=== PATIENT | female | born 1995 | race Caucasian/White ===

== ENCOUNTER 2018-04-22 18:45 | Emergency (ER) | payer OTHER ==
--- NOTE | 2018-04-22 18:55 | ER Report ---
History and Physical Time Seen By MD: 18:55 HPI/ROS CHIEF COMPLAINT: Headache HISTORY OF PRESENT ILLNESS: This is a 22-year-old female who presents to the emergency department for headache, nausea and vomiting. Patient states that about one week ago she developed some nausea and vomiting intermittent through the week and then today she developed a headache was seen in urgent care, they tried sumatriptan which did not help. Patient states that now she has increased pain behind her left eye, patient states this is the worst pain she has had. Patient does have a history of migraine headaches however she states this is completely different. Patient also has "pressure" behind her left eye. Patient is photophobic, not phonophobic. Intermittent aches and chills. No rashes no nuchal pain REVIEW OF SYSTEMS: Constitutional: As above. Eyes: As above. ENT: No sore throat. Cardiovascular: No chest pain, no palpitations. Respiratory: No cough, no shortness of breath. Gastrointestinal: As above. Genitourinary: No hematuria. Musculoskeletal: No back pain. Skin: No rashes. Neurological: As above. Allergies: Coded Allergies: Penicillins (Verified Allergy, Intermediate, HIVES, 04/22/18) amoxicillin (Verified Allergy, Intermediate, HIVES, 04/22/18) Home Meds Active Scripts Ondansetron (ZOFRAN ODT) 4 Mg Tab.rapdis, 4 MG PO Q6H Y for NAUSEA/VOMITING, # 20 TAB.AZRA 0 Refills Prov:MONET JOHANSEN [employer]ul [employer]- 04/22/18 Reported Medications Sumatriptan Succinate (SUMATRIPTAN SUCCINATE) 25 Mg Tablet, PO ONCE Y for MIGRAINE 04/22/18 Past Medical/Surgical History Patient has a past medical and surgical history of migraines, orthopedic injuries, tongue clipping. Reviewed Nurses Notes: Yes Constitutional Vital Sign - Last 24 Hours 04/22/18 04/22/18 04/22/18 04/22/18 18:55 19:00 19:15 19:30 Temp 98.4 Pulse 81 87 87 83 Resp 16 B/P (MAP) 130/92 109/89 (96) 126/77 (93) 113/72 (86) Pulse Ox 95 96 96 97 O2 Delivery Room Air Room Air Room Air Room Air 04/22/18 04/22/18 04/22/18 20:00 20:15 20:30 Pulse 90 85 85 B/P (MAP) 120/76 (91) 121/77 (92) 116/62 (80) Pulse Ox 96 96 95 O2 Delivery Room Air Room Air Room Air Intake and Output 04/22/18 04/22/18 04/23/18 15:00 23:00 07:00 Intake Total 1000 ml Balance 1000 ml Physical Exam General Appearance: The patient is alert, has no immediate need for airway protection and no signs of toxicity. Eyes: Pupils equal and round no pallor or injection. EOMs intact, no nystagmus. ENT, Mouth: Mucous membranes are moist. Respiratory: There are no retractions, lungs are clear to auscultation. Cardiovascular: Regular rate and rhythm., No murmurs, clicks or rubs. Gastrointestinal: Abdomen is soft and non tender, no masses, bowel sounds normal. Neurological: Alert and oriented 4. Moving all extremities. Owing all commands. No focal neuro deficits. Skin: Warm and dry, no rashes. Musculoskeletal: Neck is supple non tender. Extremities are nontender, nonswollen and have full range of motion. DIFFERENTIAL DIAGNOSIS: After history and physical exam differential diagnosis was considered for headache including but not limited to subarachnoid hemorrhage , migraine headache, tension headache and infectious causes such as meningitis, pharyngitis and sinusitis. Medical Decision Making Data Points Result Diagram: 04/22/18191404/22/181914 Laboratory Hematology Test 04/22/18 19:15 Red Blood Count 5.03 M/uL (4.17-5.56) Mean Corpuscular Volume 90.5 fL (80.0-96.0) Mean Corpuscular Hemoglobin 31.7 pg (26.0-33.0) Mean Corpuscular Hemoglobin Concent 35.0 g/dL (32.0-36.0) Red Cell Distribution Width 12.2 % (11.5-14.5) Mean Platelet Volume 8.7 fL (7.2-11.1) Neutrophils (%) (Auto) 83.7 % (39.4-72.5) Lymphocytes (%) (Auto) 9.6 % (17.6-49.6) Monocytes (%) (Auto) 6.0 % (4.1-12.4) Eosinophils (%) (Auto) 0.1 % (0.4-6.7) Basophils (%) (Auto) 0.6 % (0.3-1.4) Nucleated RBC Relative Count (auto) 0.0 /100WBC Neutrophils # (Auto) 12.7 K/uL (2.0-7.4) Lymphocytes # (Auto) 1.5 K/uL (1.3-3.6) Monocytes # (Auto) 0.9 K/uL (0.3-1.0) Eosinophils # (Auto) 0.0 K/uL (0.0-0.5) Basophils # (Auto) 0.1 K/uL (0.0-0.1) Nucleated RBC Absolute Count (auto) 0.01 K/uL Sodium Level 141 mmol/L (137-145) Potassium Level 3.7 mmol/L (3.5-5.0) Chloride Level 103 mmol/L (98-107) Carbon Dioxide Level 25 mmol/L (22-31) Blood Urea Nitrogen 8 mg/dl (7-18) Creatinine 0.70 mg/dl (0.52-1.04) Glomerular Filtration Rate Calc > 60.0 Random Glucose 100 mg/dl (75-110) Calcium Level 9.7 mg/dl (8.4-10.2) Total Bilirubin 0.7 mg/dl (0.2-1.3) Aspartate Amino Transf (AST/SGOT) 27 U/L (0-35) Alanine Aminotransferase (ALT/SGPT) 33 U/L (0-56) Alkaline Phosphatase 82 U/L (0-126) Total Protein 8.5 g/dl (6.3-8.2) Albumin 4.7 g/dl (3.5-5.0) Human Chorionic Gonadotropin, Qual Negative (NEGATIVE) Chemistry Test 04/22/18 19:15 White Blood Count 15.2 k/uL (4.5-11.0) Red Blood Count 5.03 M/uL (4.17-5.56) Hemoglobin 16.0 g/dL (12.0-16.0) Hematocrit 45.5 % (34.0-47.0) Mean Corpuscular Volume 90.5 fL (80.0-96.0) Mean Corpuscular Hemoglobin 31.7 pg (26.0-33.0) Mean Corpuscular Hemoglobin Concent 35.0 g/dL (32.0-36.0) Red Cell Distribution Width 12.2 % (11.5-14.5) Platelet Count 236 K/uL (150-450) Mean Platelet Volume 8.7 fL (7.2-11.1) Neutrophils (%) (Auto) 83.7 % (39.4-72.5) Lymphocytes (%) (Auto) 9.6 % (17.6-49.6) Monocytes (%) (Auto) 6.0 % (4.1-12.4) Eosinophils (%) (Auto) 0.1 % (0.4-6.7) Basophils (%) (Auto) 0.6 % (0.3-1.4) Nucleated RBC Relative Count (auto) 0.0 /100WBC Neutrophils # (Auto) 12.7 K/uL (2.0-7.4) Lymphocytes # (Auto) 1.5 K/uL (1.3-3.6) Monocytes # (Auto) 0.9 K/uL (0.3-1.0) Eosinophils # (Auto) 0.0 K/uL (0.0-0.5) Basophils # (Auto) 0.1 K/uL (0.0-0.1) Nucleated RBC Absolute Count (auto) 0.01 K/uL Glomerular Filtration Rate Calc > 60.0 Calcium Level 9.7 mg/dl (8.4-10.2) Total Bilirubin 0.7 mg/dl (0.2-1.3) Aspartate Amino Transf (AST/SGOT) 27 U/L (0-35) Alanine Aminotransferase (ALT/SGPT) 33 U/L (0-56) Alkaline Phosphatase 82 U/L (0-126) Total Protein 8.5 g/dl (6.3-8.2) Albumin 4.7 g/dl (3.5-5.0) Human Chorionic Gonadotropin, Qual Negative (NEGATIVE) EKG/Imaging Imaging Location: [facility] - [place] Patient: Joey Marcelo : 1995 Visit/Account:[id number] Date of Sevice: 04/22/[address] scan without contrast COMPARISONS: None ADDITIONAL PERTINENT HISTORY: Headache TECHNIQUE: Multiple axial images were obtained from the skull base to the vertex without IV contrast. One of the following dose optimization techniques was utilized in the performance of this exam: Automated exposure control; adjustment of the mA and/or kV according to the patient's size; or use of an iterative reconstruction technique. Specific details can be referenced in the facility's radiology CT exam operational policy. FINDINGS: Midline shift: Negative Ventricles: Negative Brain parenchyma: Negative Extra-axial spaces: Negative Intracranial vasculature: Negative Osseous structures: Negative Paranasal sinuses and mastoid air cells: Negative Surrounding soft tissues and orbits: Negative IMPRESSION: Normal head CT scan without contrast. Report Dictated By: Ian Rosas MD at 04/22/2018 8:04 PM Report E-Signed By: Ian Rosas MD at 04/22/2018 8:08 PM [id number] ED Course/Re-evaluation Clinical Indication for ER IV: Hydration, IV Access ED Course The patient was admitted to room. A history and physical were obtained. Differential diagnoses were considered. An IV was started. A CBC, CMP were obtained. CBC showing WBCs 15.2 with a left shift however this could be the de margination due to vomiting chemistry unremarkable. CT of the head negative for any acute findings. Patient was given a 1 L normal saline bolus, 4 mg IV Zofran , 25 mg IV Benadryl, 5 mg IV Decadron, 12.5 mg IV and again, 30 mg IV Toradol. Patient was also given a take-home pack of Zofran. I did review the lab studies and the CT the patient as noted below. I did tell the patient that this is likely a migraine type of headache, encouraged her to follow up with her primary care provider for reevaluation of her migraines. Also encouraged patient to drink plenty of fluids. Patient's pain much improved since her arrival. 04/22/2018 8:16:10 pm I did review the lab studies and a CT with the patient. She states her pain has improved however she still has a little bit of discomfort. I did give the patient 30 mg IV Toradol. Decision to Disposition Date: Apr 22, 2018 Decision to Disposition Time: 20:51 Depart Departure Latest Vital Signs Vital Signs Date Time Temp Pulse Resp B/P (MAP) Pulse Ox O2 Delivery O2 Flow Rate FiO2 04/22/18 20:30 85 116/62 (80) 95 Room Air 04/22/18 18:55 98.4 16 Impression: Primary Impression: Migraine headache with aura Condition: Improved Disposition: HOME OR SELF-CARE New Scripts Ondansetron (ZOFRAN ODT) 4 Mg Tab.rapdis 4 MG PO Q6H Y for NAUSEA/VOMITING, #20 TAB.AZRA 0 Refills Prov: MONET JOHANSEN 04/22/18 Patient Instructions: Migraine Headache (ED) Additional Instructions: Drink plenty of fluids. Get plenty of rest. Try to follow-up with your primary care provider within 2-5 days for reevaluation. Return to the emergency department for any other concerns or worsening symptoms. Take the Zofran as indicated for nausea and vomiting. Problem Qualifiers Primary Impression: Migraine headache with aura Status migrainosus presence: without status migrainosus Intractability: not intractable Qualified Codes: G43.109 - Migraine with aura, not intractable, without status migrainosus MONET JOHANSEN-BC Apr 22, 2018 18:55
[2018-04-22] MEDS ORDERED: SUMA25TA27 PO (19:04)
[2018-04-22] MEDS ORDERED: NS(*) 0.9% 1000 ML BAG 1,000 ML IV ONE (19:07)
[2018-04-22] MEDS ORDERED: PROMETHAZINE 25 MG/ML 1 ML AMP IVP ONE (19:10)
[2018-04-22] MEDS ORDERED: ONDANSETRON 4 MG/2 ML VIAL IVP ONE (19:10)
[2018-04-22] MEDS ORDERED: diphenhydrAMINE 50 MG/ML VIAL IVP ONE (19:10)
[2018-04-22] MEDS ORDERED: DEXAMETHASONE SOD PHOS 10MG/ML IVP ONE (19:10)
[2018-04-22 19:30] LABS: PLATELET COUNT, AUTOMATED 236 K/uL (150-450)
--- NOTE | 2018-04-22 20:12 | RADIOLOGY IMAGING REPORT ---
FACILITY: [facility] [place] PATIENT NAME: Joey Marcelo : 1995 MR: [id number] V: [id number] EXAM DATE: ORDERING PHYSICIAN: MONET JOHANSEN TECHNOLOGIST: Location: [facility] Patient: Joey Marcelo : 1995 Visit/Account:[id number] Date of Sevice: 04/22/[address] scan without contrast COMPARISONS: None ADDITIONAL PERTINENT HISTORY: Headache TECHNIQUE: Multiple axial images were obtained from the skull base to the vertex without IV contrast . One of the following dose optimization techniques was utilized in the performance of this exam: Aut omated exposure control; adjustment of the mA and/or kV according to the patient's size; or use of an iterative reconstruction technique. Specific details can be referenced in the facility's radiology CT exam operational policy. FINDINGS: Midline shift: Negative Ventricles: Negative Brain parenchyma: Negative Extra-axial spaces: Negative Intracranial vasculature: Negative Osseous structures: Negative Paranasal sinuses and mastoid air cells: Negative Surrounding soft tissues and orbits: Negative IMPRESSION: Normal head CT scan without contrast. Report Dictated By: Ian Rosas MD at 04/22/2018 8:04 PM Report E-Signed By: Ian Rosas MD at 04/22/2018 8:08 PM [id number]
[2018-04-22] MEDS ORDERED: KETOROLAC 30 MG/ML VIAL IVP ONE (20:15)
[2018-04-22] MEDS ORDERED: ONDA4TAB PO (20:18)
[2018-04-22] MEDS ORDERED: ONDANSETRON 4 MG ODT TH SL ONE (20:20)
[2018-04-22 20:30] VITALS: BP 116/62
== END 2018-04-22 20:58 | disposition home or self-care (01) ==
LOC: ER 18:56
DX: G43.109 Migraine with aura, not intractable, without status migrainosus (principal)
CPT/HCPCS: 70450; 84703; 85025; 96361; 96374; 96375; 99284; J1100; J1200; J1885; J2405; J2550; J7030; S0119; 82040; 82247; 82310; 82374; 82435; 82565; 82947; 84075; 84132; 84155; 84295; 84450; 84460; 84520

== ENCOUNTER → 2018-04-22 | Outpatient (REF) | payer OTHER ==
[~2018-04-22] MED LIST: ONDA4TAB PO; SUMA25TA27 PO
[2018-04-22 13:11] LABS: PLATELET COUNT, AUTOMATED 241 K/uL (150-450)
== END ==
PROVIDERS: ATTEND Family Medicine
DX: R11.2 Nausea with vomiting, unspecified (principal)
CPT/HCPCS: 82040; 82150; 82247; 82310; 82374; 82435; 82565; 82947; 83690; 84075; 84132; 84155; 84295; 84450; 84460; 84520; 85025

== ENCOUNTER 2018-12-21 11:25 | Emergency (ER) | payer OTHER ==
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
[2018-12-21 12:37] LABS: PLATELET COUNT, AUTOMATED 228 K/uL (150-450)
[2018-12-21] MEDS ORDERED: RIZA10TA PO (14:56)
== END 2018-12-21 13:30 ==
LOC: ER 11:35
DX: R45.851 Suicidal ideations (principal); F32.9 Major depressive disorder, single episode, unspecified
CPT/HCPCS: 36415; 80305; 80320; 80329; 81001; 81025; 82040; 82247; 82310; 82374; 82435; 82565; 82947; 83735; 84075; 84132; 84155; 84295; 84443; 84450; 84460; 84520; 85025; 99284

== ENCOUNTER 2018-12-21 13:04 | Inpatient (IN) | payer OTHER ==
[~2018-12-21] VITALS: Ht 165.1 cm; Wt 59.4 kg
[2018-12-21 13:30] VITALS: BP 120/80
[2018-12-21] MEDS ORDERED: ACETAMINOPHEN 325 MG TAB PO PRN (13:35)
[2018-12-21] MEDS ORDERED: MAG HYD/AL HYD/SIMETH 30ML UDC PO PRN (13:51)
[2018-12-21] MEDS ORDERED: RIZATRIPTAN BENZOAT (ODT) 10MG PO PRN (14:45)
[2018-12-21] MEDS ORDERED: RIZA10TA PO (14:56)
[2018-12-21] MEDS: SERTRALINE HCL 50 MG TAB PO SCH (15:28)
[2018-12-21] MEDS ORDERED: diphenhydrAMINE 25 MG CAP PO PRN (20:25)
[2018-12-21] MEDS: diphenhydrAMINE 25 MG CAP PO PRN ×2 (21:27→22:30)
[2018-12-22 06:31] VITALS: BP 104/80
--- NOTE | 2018-12-22 08:18 | BHS Progress Note ---
BHS - Subjective Progress Notes Subjective "I've struggled with depression for a long time. I had thought about suicide the last two weeks and yesterday I was thinking of stabbing myself and I own firearms. I got to the point where I thought things are hopeless." Previously took Sertraline last year with reported benefit, restarted yesterday Works with Kenyatta at [facility] for individual weekly therapy Rating depression 01/30, anxiety 03/01 Last suicidal ideation yesterday "sometime" Suicidal Ideation: None Homicidal Ideation: None S - Objective Physical Exam Vital Signs Medications (Trade) Dose Ordered Sig/Ronaldo Route PRN Reason Start Time Stop Time Status Last Admin Dose Admin Diphenhydramine HCl (Benadryl(*) 25 Mg Cap (Or Equiv)) 25-50 MG QHS PRN PO SLEEP 12/21/18 20:35 01/20/19 20:24 12/21/18 22:30 Sertraline HCl (Zoloft 50 Mg Tab (Or Equiv)) 50 mg QDAY PO 12/21/18 14:55 01/20/19 14:54 12/21/18 15:28 Vital Signs Date Time Temp Pulse Resp B/P (MAP) Pulse Ox O2 Delivery O2 Flow Rate FiO2 12/22/18 06:31 98.7 104/80 (88) 95 12/21/18 13:30 83 16 Room Air Allergies Coded Allergies Penicillins (Verified Allergy, Intermediate, HIVES, 04/22/18) amoxicillin (Verified Allergy, Intermediate, HIVES, 04/22/18) Muscle Strength and Tone: WNL Gait and Station: Steady [facility] Medications Reviewed: Side Effects, Benefits of Medication, Risks Allergies Reviewed: Yes Mental Status Exam General Appearance: Casual, Well Groomed, Good Eye Contact, Cooperative, Polite, Good Interaction Speech: Clear, Spontaneous, Normal Rate, Normal Rhythm, Normal Volume, Normal Tone Mood: Dysthmic/Depressed (rates depression /10) Affect: Full and Appropriate, Calm Thought Process: Organized, Logical, Goal Directed Thought Content: No Suicidal Ideation, No Homicidal Ideation, No Delusions, No Auditory Halllucinations, No Visual Hallucinations, No Thought Broadcasting Sensorium: Clear Cognition: Alert & Oriented-Person, Alert & Oriented-Place, Alert & Oriented- Time, [id number]-Zenhzdrqt Memory: Immediate, Recent, Remote Intelligence: Average Insight Judgment: Intact, Appropriate Microbiology Medications (Trade) Dose Ordered Sig/Ronaldo Route PRN Reason Start Time Stop Time Status Last Admin Dose Admin Diphenhydramine HCl (Benadryl(*) 25 Mg Cap (Or Equiv)) 25-50 MG QHS PRN PO SLEEP 12/21/18 20:35 01/20/19 20:24 12/21/18 22:30 Sertraline HCl (Zoloft 50 Mg Tab (Or Equiv)) 50 mg QDAY PO 12/21/18 14:55 01/20/19 14:54 12/21/18 15:28 [facility] Assessment and Plan [id number] Encounter Date: Dec 22, 2018 [id number] Encounter Time: 08:12 Multpiple Antipsychotics Used: No Problems: (1) Major depressive disorder, recurrent Status: Chronic Condition Continue Sertraline Maintain precautions Ongoing discharge planning/work with individual therapist for continuity of care Problem Qualifiers (1) Major depressive disorder, recurrent: Active/Remission status: currently active Major depression episode severity: severe Psychotic features: without psychotic features Qualified Codes: F33.2 - Major depressive disorder, recurrent severe without psychotic features PAULINA SORIA NP Dec 22, 2018 08:18
[2018-12-22] MEDS: MULTIVITAMINS TAB PO SCH (08:21)
[2018-12-22] MEDS: SERTRALINE HCL 50 MG TAB PO SCH (08:21)
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
[2018-12-22 19:54] VITALS: BP 125/80
[2018-12-22] MEDS: traZODone HCL 50 MG TAB PO PRN (21:31)
[2018-12-23 05:33] VITALS: BP 100/58
[2018-12-23] MEDS: MULTIVITAMINS TAB PO SCH (08:28)
[2018-12-23] MEDS: SERTRALINE HCL 50 MG TAB PO SCH (08:28)
--- NOTE | 2018-12-23 09:58 | BHS Progress Note ---
S - Subjective Progress Notes Subjective 'I'm feeling very overwhelmed. I can't even think about going back to school, If I quit the program I don't know what would happen. I have so many projects. I don't know that I want to , but I don't know if I want to live." Father wants patient to move to [place] back home, patient discusses work, school and financial related stressors Rates depression 8, anxiety /10 Slept well once fell asleep last night Suicidal Ideation: None Homicidal Ideation: None [facility] - Objective Physical Exam Vital Signs Vital Signs Date Time Temp Pulse Resp B/P (MAP) Pulse Ox O2 Delivery O2 Flow Rate FiO2 12/23/18 05:33 97.7 57 100/58 (72) 94 Room Air 12/21/18 13:30 16 Deferred Medications (Trade) Dose Ordered Sig/Ronaldo Route PRN Reason Start Time Stop Time Status Last Admin Dose Admin Diphenhydramine HCl (Benadryl(*) 25 Mg Cap (Or Equiv)) 25-50 MG QHS PRN PO SLEEP 12/21/18 20:35 01/20/19 20:24 12/21/18 22:30 Multivitamins (Thera-M Enhanced Tab (Or Equiv)) 1 each QDAY PO 12/22/18 09:00 01/21/19 08:59 12/23/18 08:28 Sertraline HCl (Zoloft 50 Mg Tab (Or Equiv)) 50 mg QDAY PO 12/21/18 14:55 01/20/19 14:54 12/23/18 08:28 Trazodone HCl (Desyrel 50 Mg Tab (Or Equiv)) 50 mg QHS PRN PO INSOMNIA 12/22/18 19:30 01/21/19 19:29 12/22/18 21:31 Muscle Strength and Tone: WNL Gait and Station: Steady [facility] Medications Reviewed: Side Effects, Benefits of Medication, Risks Allergies Reviewed: Yes Mental Status Exam General Appearance: Casual, Well Groomed, Good Eye Contact, Cooperative, Polite, Good Interaction Speech: Clear, Spontaneous, Normal Rate, Normal Rhythm, Normal Volume, Normal Tone Mood: Dysthmic/Depressed (rates depression 8/) Affect: Full and Appropriate, Calm, Sad, Tearful Thought Process: Organized, Logical, Goal Directed Thought Content: No Suicidal Ideation, No Homicidal Ideation, No Delusions, No Auditory Halllucinations, No Visual Hallucinations, No Thought Broadcasting Sensorium: Clear Cognition: Alert & Oriented-Person, Alert & Oriented-Place, Alert & Oriented- Time, Rjmus-Ndbstdeg-Xedhdjrof Memory: Immediate, Recent, Remote Intelligence: Average Insight Judgment: Intact, Appropriate, Fair Microbiology Current Medications Medications (Trade) Dose Ordered Sig/Ronaldo Route PRN Reason Start Time Stop Time Status Last Admin Dose Admin Acetaminophen (Tylenol(*)325 Mg Tab (Or Equiv)) 650 mg Q4H PRN PO HEADACHE 12/21/18 13:35 01/20/19 13:34 Al Hydrox/Mg Hydrox/Simethicone (Maalox(*) 30 ml Udcup (Or Equiv)) 30 ml Q4H PRN PO DYSPEPSIA 12/21/18 13:51 01/20/19 13:50 Multivitamins (Thera-M Enhanced Tab (Or Equiv)) 1 each QDAY PO 12/22/18 09:00 01/21/19 08:59 12/23/18 08:28 Rizatriptan Benzoate (Maxalt-Household Appliances Service Technician(*) (Odt) 10 Mg Tabdp (Or Equiv)) 10 mg PRN PRN PO MIGRAINE 12/21/18 14:45 01/20/19 14:44 Sertraline HCl (Zoloft 50 Mg Tab (Or Equiv)) 50 mg QDAY PO 12/21/18 14:55 01/20/19 14:54 12/23/18 08:28 Diphenhydramine HCl (Benadryl(*) 25 Mg Cap (Or Equiv)) 25 mg QHS PRN PO SLEEP 12/21/18 20:25 12/21/18 20:33 DC Diphenhydramine HCl (Benadryl(*) 25 Mg Cap (Or Equiv)) 25-50 MG QHS PRN PO SLEEP 12/21/18 20:35 01/20/19 20:24 12/21/18 22:30 Trazodone HCl (Desyrel 50 Mg Tab (Or Equiv)) 50 mg QHS PRN PO INSOMNIA 12/22/18 19:30 01/21/19 19:29 12/22/18 21:31 Medications (Trade) Dose Ordered Sig/Ronaldo Route PRN Reason Start Time Stop Time Status Last Admin Dose Admin Diphenhydramine HCl (Benadryl(*) 25 Mg Cap (Or Equiv)) 25-50 MG QHS PRN PO SLEEP 12/21/18 20:35 01/20/19 20:24 12/21/18 22:30 Multivitamins (Thera-M Enhanced Tab (Or Equiv)) 1 each QDAY PO 12/22/18 09:00 01/21/19 08:59 12/23/18 08:28 Sertraline HCl (Zoloft 50 Mg Tab (Or Equiv)) 50 mg QDAY PO 12/21/18 14:55 01/20/19 14:54 12/23/18 08:28 Trazodone HCl (Desyrel 50 Mg Tab (Or Equiv)) 50 mg QHS PRN PO INSOMNIA 12/22/18 19:30 01/21/19 19:29 12/22/18 21:31 S Assessment and Plan [id number] Encounter Date: Dec 23, 2018 [id number] Encounter Time: 05:40 [facility] Plan: Admit to Unit, Necessary Precautions, Individual/Group Therapy, Admin/Titrate Meds, Educate Patient Multpiple Antipsychotics Used: No Problems: (1) Major depressive disorder, recurrent Status: Chronic Condition Increase Sertraline to 100mg po every am targeting depression/anxiety, Trazadone 50 mg po every pm targeting sleep Maintain precautions Treatment team 3/4 Problem Qualifiers (1) Major depressive disorder, recurrent: Active/Remission status: currently active Major depression episode severity: severe Psychotic features: without psychotic features Qualified Codes: F33.2 - Major depressive disorder, recurrent severe without psychotic features PAULINA SORIA NP Dec 23, 2018 09:58
[2018-12-23 12:40] VITALS: BP 118/70
[2018-12-23] MEDS: traZODone HCL 50 MG TAB PO PRN (20:37)
[2018-12-23 22:31] VITALS: BP 117/75
[2018-12-24 06:06] VITALS: BP 117/64
[2018-12-24] MEDS: MULTIVITAMINS TAB PO SCH (08:21)
[2018-12-24] MEDS ORDERED: SERTRALINE HCL 50 MG TAB PO SCH (09:00)
[2018-12-24] MEDS ORDERED: SERT-173 PO (10:57)
--- NOTE | 2018-12-24 15:35 | BHS Discharge Summary ---
[facility] Discharge Summary Bwsq-di-Nxwn Encounter Date: Dec 24, 2018 Fdhi-pw-Ezsx Encounter Time: 10:30 Reason-Hosp/Final Diag (DSM-V): (1) Adjustment disorder with mixed anxiety and depressed mood Hospital Course & Plan: HISTORY OF PRESENT ILLNESS I was contacted by Rob Diaz NP, in the emergency room in the early afternoon of December 22 about Joey Marcelo, who had presented to the emergency room upon referral from her therapist at . Joey admitted to thoughts about committing suicide and the possession of a firearm as well as a knife, both of which she had been considering using for ending her life. She agreed to come voluntarily into Behavioral Health. I met with Joey at about 2 p.m. on the afternoon of December 22, 2018. She stated that she had been in the office of her primary care provider at and they were discussing starting her back on an antidepressant when she became overwhelmed with negative emotions. She and Jimena were not able to agree on what Joey could do after leaving her office that would keep her safe so Joey agreed to come to the emergency room. Joey admits that she has been having suicidal thoughts since she was in grade school. They have been becoming much more intense lately and for about the last two weeks she has been thinking about killing herself very frequently. She has a gun and she also has a knife. She has considered using both but she believes that the knife might be more effective and has considered the exact path and place she would need to stab herself in the chest in order to penetrate her diaphragm and enter a large vessel so that she could quickly. She has seen other clients in her work at [employer] who have attempted suicide with a gun and survived. This frightens her. Joey has been under a tremendous amount of stress. She works full-time at two jobs ([employer] on nights and weekends and at [employer] in her off hours). 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 She has financial stress and she has to support herself without much help from her parents. The last straw came when friends asked her for the third time to play intramural basketball, which she feels that she does not have time to do but she agreed to do because she just could not say no to them one more time. HOSPITAL COURSE Pt was admitted to [facility] and maintained on suicide precautions. She was initially quite depressed and continued to have suicidal ideation the first hospital day. She was cooperative and very invested in her treatment, attending all groups and individual therapy sessions. She worked on self esteem, learning to say no, self-care. She called her two employers and arranged some time off from work for the near future so she can focus on therapy. Her mother came down and attended treatment team on the day of discharge; her outpatient therapist Kenyatta Combs was also present by speaker phone. Mother verifies that firearm and knife at pt's home have been removed. Pt's zoloft was restarted and titrated to 100 mg, which was well tolerated. By day of discharge she felt "great," denied depression, denied suicidal ideation, and looking forward to returning home and working in outpatient therapy. She will follow up with Kenyatta Combs for therapy and with [facility] for medication management. Physical Exam Latest Vital Signs Vital Signs 12/24/18 06:06 Temp 98.2 Pulse 70 Resp 15 B/P (MAP) 117/64 (81) Pulse Ox 93 O2 Delivery Room Air Mental Status Exam General Appearance: Casual, Well Groomed, Good Eye Contact, Cooperative, Polite, Good Interaction Speech: Clear, Spontaneous, Normal Rate, Normal Rhythm, Normal Volume, Normal Tone Mood: Euthymic Affect: Full and Appropriate, Calm Thought Process: Organized, Logical, Goal Directed Thought Content: No Suicidal Ideation, No Homicidal Ideation, No Delusions, No Auditory Halllucinations, No Visual Hallucinations, No Thought Broadcasting, No Ideas of Reference, No Obsessions, No Compulsions, No Other Sensorium: Clear Cognition: Alert & Oriented-Person, Alert & Oriented-Place, Alert & Oriented- Time, Avaak-Mgjwnape-Utjfthzdj Memory: Immediate, Recent, Remote Intelligence: Average Insight Judgment: Intact, Appropriate, Good Departure Item Value Date Time White Blood Count 9.7 k/uL 12/21/18 1223 Red Blood Count 4.50 M/uL 12/21/18 1223 Hemoglobin 14.3 g/dL 12/21/18 1223 Hematocrit 41.2 % 12/21/18 1223 Mean Corpuscular Volume 91.7 fL 12/21/18 1223 Mean Corpuscular Hemoglobin 31.7 pg 12/21/18 1223 Mean Corpuscular Hemoglobin Concent 34.6 g/dL 12/21/18 1223 Red Cell Distribution Width 12.4 % 12/21/18 1223 Platelet Count 228 K/uL 12/21/18 1223 Sodium Level 141 mmol/L 12/21/18 1223 Potassium Level 3.6 mmol/L 12/21/18 1223 Chloride Level 107 mmol/L 12/21/18 1223 Carbon Dioxide Level 23 mmol/L 12/21/18 1223 Blood Urea Nitrogen 12 mg/dl 12/21/18 1223 Creatinine 0.60 mg/dl 12/21/18 1223 Glomerular Filtration Rate Calc > 60.0 12/21/18 1223 Random Glucose 95 mg/dl 12/21/18 1223 Calcium Level 9.5 mg/dl 12/21/18 1223 Magnesium Level 2.1 mg/dl 12/21/18 1223 Total Bilirubin 0.5 mg/dl 12/21/18 1223 Aspartate Amino Transf (AST/SGOT) 21 U/L 12/21/18 1223 Alanine Aminotransferase (ALT/SGPT) 27 U/L 12/21/18 1223 Alkaline Phosphatase 91 U/L 12/21/18 1223 Total Protein 7.7 g/dl 12/21/18 1223 Albumin 4.6 g/dl 12/21/18 1223 Amylase Level 128 U/L H 04/22/18 1240 Thyroid Stimulating Hormone (TSH) 0.97 uIU/ml 12/21/18 1223 Human Chorionic Gonadotropin, Qual Negative 04/22/18 1915 Lipase 121 U/L 04/22/18 1240 Urine Color Yellow 12/21/18 1126 Urine Clarity Slightly-cloudy 12/21/18 1126 Urine pH 5.0 pH 12/21/18 1126 Urine Specific [place] 1.013 12/21/18 1126 Urine Protein Negative mg/dL 12/21/18 1126 Urine Glucose (UA) Negative mg/dL 12/21/18 1126 Urine Ketones Negative mg/dL 12/21/18 1126 Urine Blood Negative 12/21/18 1126 Urine Nitrite Negative 12/21/18 1126 Urine Bilirubin Negative 12/21/18 1126 Urine Urobilinogen Negative mg/dL 12/21/18 1126 Urine Leukocyte Esterase Negative 12/21/18 1126 Urine RBC <1 /HPF 12/21/18 1126 Urine WBC 4 /HPF 12/21/18 1126 Urine Squamous Epithelial Cells Many /LPF H 12/21/18 1126 Urine Bacteria Many /HPF H 12/21/18 1126 Urine Mucus Few /HPF 12/21/18 1126 Urine HCG, Qualitative Negative 12/21/18 1126 Salicylates Level < 10 mg/L 12/21/18 1223 Salicylate Last Dose Date unk 12/21/18 1223 Urine Opiates Screen Negative 12/21/18 1126 Acetaminophen Level < 10 ug/ml 12/21/18 1223 Urine Barbiturates Screen Negative 12/21/18 1126 Ur Tricyclic Antidepressants Screen Negative 12/21/18 1126 Urine Phencyclidine Screen Negative 12/21/18 1126 Urine Amphetamines Screen Negative 12/21/18 1126 Urine Benzodiazepines Screen Negative 12/21/18 1126 Urine Cocaine Screen Negative 12/21/18 1126 Urine Cannabinoids Screen Negative 12/21/18 1126 Serum Alcohol < 10 mg/dl 12/21/18 1223 Condition: Improved Discharge to: Home Discharge Instructions Home Meds Reported Medications Sertraline Hcl (ZOLOFT) 100 Mg Tablet, 100 MG PO QAM, TAB 12/24/18 Rizatriptan Benzoate (MAXALT) 10 Mg Tablet, 10-20 MG PO PRN PRN for MIGRAINE DISSOLVE ONE OR TWO TABLETS UNDER THE TONGUE NEEDED FOR MIGRAINE. MAY REPEATE IN TWO HOURS IF NO RELIEF. MAX 20 MG IN 24 HRS. 12/21/18 Multpiple Antipsychotics Used: No Diet: Regular Activity: As Tolerated Special Instructions: Take medications as prescribed. Follow up with outpatient provider for medication management. Follow up with outpatient therapy. Call Crisis Line should symptoms return. PAVITHRA PANTOJA MD Dec 24, 2018 15:35
== END 2018-12-24 11:49 | disposition home or self-care (01) | DRG 882 ==
LOC: BHS 13:04
PROVIDERS: ADMIT Psychiatry & Neurology Psychiatry; ATTEND Psychiatry & Neurology Psychiatry
DX: F43.23 Adjustment disorder with mixed anxiety and depressed mood (principal); R45.851 Suicidal ideations; Z56.6 Other physical and mental strain related to work; Z59.8 Other problems related to housing and economic circumstances; Z55.8 Other problems related to education and literacy; Z91.5 Personal history of self-harm; Z62.811 Personal history of psychological abuse in childhood; Z62.810 Personal history of physical and sexual abuse in childhood; Z81.1 Family history of alcohol abuse and dependence; Z88.0 Allergy status to penicillin
CPT/HCPCS: Q0163